=== PATIENT | male | born 1950 | race Caucasian/White ===

== ENCOUNTER 2018-06-08 14:04 | Emergency (ER) | payer OTHER ==
[~2018-06-08] VITALS: Ht 177.8 cm; Wt 88.5 kg
[2018-06-08] MEDS ORDERED: ZESTRIL2.5 MG (14:55)
[2018-06-08] MEDS ORDERED: AMBIEN5 MG (14:55)
[2018-06-08] MEDS ORDERED: ULTRACET PO (19:28)
[2018-06-08] MEDS ORDERED: DUI500 PO (19:28)
== END 2018-06-08 19:56 | disposition home or self-care (01) ==
LOC: ER 14:04
DX: S62.633A Displaced fracture of distal phalanx of left middle finger, initial encounter for closed fracture (principal); S61.323A Laceration with foreign body of left middle finger with damage to nail, initial encounter; W23.0XXA Caught, crushed, jammed, or pinched between moving objects, initial encounter; Y93.89 Activity, other specified; Y92.814 Boat as the place of occurrence of the external cause; Y99.8 Other external cause status